=== PATIENT | female | born 1945 | race Hispanic/Latino ===

== ENCOUNTER 2019-03-28 19:10 | Emergency (ER) | payer OTHER ==
[~2019-03-28] VITALS: Ht 157.5 cm; Wt 62.1 kg
[2019-03-28] MEDS ORDERED: HYDROCODONE/APAP 10MG-325MG TAB PO ONE (19:30)
--- NOTE | 2019-03-28 20:27 | Diagnostic Imaging Report ---
Left shoulder 4 - views HISTORY: Pain. Fall. COMPARISON: None FINDINGS: Overlying artifact. Mild displaced fracture of the left greater tuberosity. Mild degenerative changes of the left AC joint. The joint spaces are well-maintained. The soft tissues appear unremarkable. IMPRESSION: Mild displaced fracture of the left greater tuberosity. Signed by: Dr. Gloria Hodgson M.D. on 03/28/2019 8:24 PM
== END 2019-03-28 21:15 | disposition home or self-care (01) ==
LOC: FSED 19:10
DX: S42.252A Displaced fracture of greater tuberosity of left humerus, initial encounter for closed fracture (principal); W01.0XXA Fall on same level from slipping, tripping and stumbling without subsequent striking against object, initial encounter; Y99.0 Civilian activity done for income or pay
CPT/HCPCS: 99283